=== PATIENT | male | born 1945 | race Caucasian/White ===

== ENCOUNTER 2023-09-08 14:02 | Outpatient (AMB) | payer MEDICARE, SELFPAY ==
--- NOTE | 2023-09-08 14:07 | AM.OFFWIN_ITS ---
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 Intake Note: pt is here today for nose and cough started 3 days ago Allergies No Known Allergies Allergy (Verified 09/08/23 14:13) Do you need a note to return to daycare/school/sports/work: No HPI HPI Comments History of Present Illness Details He presents to office with cold symptoms He admits to fatigue, congestion, dry cough Negative covid test at home and unsure if positive He said has been ongoing for a few days No fever or chills + slight body aches Wanted to be swabbed Not taking anything for symptoms No CP or SOB Review of Systems Const Reports body aches, Denies chills, Reports fatigue, Denies fever(s) and Denies headache(s) Eyes Denies blurry vision ENT Denies dizziness, Denies otalgia (wears hearing aids), Denies headache(s), Reports nasal congestion and Denies sore throat Card Denies chest pain, Denies syncope, Denies rapid heart rate and Denies dyspnea Resp Denies chest congestion, Reports cough and Denies dyspnea GI Denies abdominal pain and Denies vomiting Musc Denies back pain and Reports myalgias Neuro Denies dizziness, Denies syncope, Denies headache(s) and Denies focal weakness Endo Reports fatigue Physical Exam Vital Signs: Last Vital Signs Temp 98.0 F 09/08/23 14:09 Pulse 86 09/08/23 14:09 BP 122/60 09/08/23 14:09 Pulse Ox 99 09/08/23 14:09 Oxygen Delivery Method Room Air 09/08/23 14:09 BMI result Body Mass Index 23.5 General: Non-toxic, NAD. Speaking full sentences. Skin: Warm dry throughout Eye: EOMI HENT: Airway patent. Uvula midline. No pharyngeal erythema or edema. 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 Bilateral canals clear. TM non-erythematous, non-bulging. No TM perforation or hemotympanum noted. Respiratory: CTA bilaterally. No wheezes, rales or rhonchi Cardiac: RRR. No murmur MSK: Full ROM extremities. Neurology: A/O. No aphasia or facial droop. Gait without abnormality Psych: Good mood and affect Assessment & Plan Assessment & Plan (1) Upper respiratory infection: Code(s): J06.9 - Acute upper respiratory infection, unspecified Qualifiers: URI type: unspecified viral URI Qualified Code(s): J06.9 - Acute upper respiratory infection, unspecified Plan: Patient seen and evaluated. Non-toxic appearing Lungs CTA COVID test due to unsure if + at home; resulted as + 5 day quarantine at home. Pt stable so will hold paxlovid Discussed ER protocol for CP, SOB, dizziness etc and he understands. 5 day quarantine at home and 5 day mask wearing in public Call with concerns Patient gave verbal understanding and had no additional questions or concerns at time of discharge All questions answered (2) COVID: Code(s): U07.1 - COVID-19 Plan: see above Orders: Orders BinaxNOW Covid-19 Ag Today J06.9 - Acute upper respiratory infection, unspecified Coding Level of Care Code New Pt Level 3 (33641) Diagnoses Viral upper respiratory tract infection J06.9 URI type: unspecified viral URI COVID U07.1
[2023-09-08 14:09] VITALS: BP 122/60; PULSE 86; TEMP 36.7; O2SAT 99; BMI 23.5
== END 2023-09-08 15:36 | disposition home or self-care (01) ==
PROVIDERS: Visit Provider Physician Assistant
DX: J06.9 Acute upper respiratory infection, unspecified (principal); U07.1 COVID-19
CPT/HCPCS: 99203

== ENCOUNTER 2023-09-08 14:39 | Outpatient (REF) | payer MEDICARE, SELFPAY ==
[2023-09-08 14:53] LABS: Binax Internal Control QC Valid; Binax Now Covid-19 Ag Positive (Negative); Binax Performed by: PAULP
== END 2023-09-08 14:40 | disposition home or self-care (01) ==
LOC: HO.HMGCLDS 14:39
PROVIDERS: Visit Provider Physician Assistant
DX: J06.9 Acute upper respiratory infection, unspecified (principal); Z20.822 Contact with and (suspected) exposure to COVID-19
CPT/HCPCS: 87811

== ENCOUNTER 2023-09-20 10:20 | Outpatient (AMB) | payer MEDICARE, SELFPAY ==
[2023-09-20 11:37] VITALS: BP 140/80; PULSE 73; TEMP 36.2; O2SAT 98; BMI 24.7
--- NOTE | 2023-09-20 11:37 | MHC.OFFWIV ---
Intake Vital Signs 09/20/23 11:37 Height 5 ft 9 in Weight 167 lb BMI 24.7 BP 140/80 H Blood Pressure Location Lt brachial Position Sitting Pulse 73 Pulse Source Pulse Oximeter Temp 97.1 F Temp Source Temporal Artery Scan Pulse Oximetry (%) 98 Oxygen Delivery Method Room Air Intake Visit Reasons: EST/sinus pressure(lobby masked) Intake Note: pt is here today for sinus pressure started 2 weeks ago Patient Tobacco Use Status: Never used Tobacco Allergies No Known Allergies Allergy (Verified 09/20/23 11:41) Do you need a note to return to daycare/school/sports/work: No HPI HPI Comments History of Present Illness Details Patient presents with sinus complaint He was seen 09/08 and + covid At that time he had barely any symptoms He states sinus congestion continuing Hx of sinusitis due to deviared septum + post nasal drip and cough Intermittent phlegm No fever or chills + good energy and working out again No CP or SOB Using cough drops without relief + sinus pressure without ST or ear pain PFSH Social History Patient Tobacco Use Status: Never used Tobacco Review of Systems Const Denies body aches, Denies chills, Denies fatigue and Denies fever(s) Eyes Denies blurry vision ENT Denies otalgia, Reports nasal congestion, Reports nasal discharge, Reports sinus pressure and Denies sore throat Card Denies chest pain and Denies dyspnea Resp Denies chest congestion, Reports cough and Denies dyspnea GI Denies abdominal pain Endo Denies fatigue Physical Exam Vital Signs: Last Vital Signs Temp 97.1 F 09/20/23 11:37 Pulse 73 09/20/23 11:37 BP 140/80 H 09/20/23 11:37 Pulse Ox 98 09/20/23 11:37 Oxygen Delivery Method Room Air 09/20/23 11:37 BMI result Body Mass Index 24.7 General: Non-toxic, NAD. Speaking full sentences. Skin: Warm dry throughout Eye: EOMI, PERRL HENT: Airway patent. Uvula midline. No pharyngeal erythema or edema. No MACHINE FELLER. + sinus tenderness to palpation maxillary bilaterally Bilateral canals clear. TM non-erythematous, non-bulging. No TM perforation or hemotympanum noted. Respiratory: CTA bilaterally. No wheezes, rales or rhonchi Cardiac: RRR. No murmur MSK: Full ROM extremities. Neurology: A/O. No aphasia or facial droop. Gait without abnormality Psych: Good mood and affect Assessment & Plan Assessment & Plan (1) Sinusitis: Code(s): J32.9 - Chronic sinusitis, unspecified Qualifiers: Sinusitis location: maxillary Chronicity: acute Recurrence: non-recurrent Qualified Code(s): J01.00 - Acute maxillary sinusitis, unspecified Plan: Patient seen and evaluated. He was + for covid 11 days ago Symptoms appear to have turned into bacterial inusitis Discussed antibiotic to pharmacy to take with food Tessalon for cough F/U with PCP Patient gave verbal understanding and had no additional questions or concerns at time of discharge All questions answered Medications: New benzonatate 100 mg PO BID-TID PRN 14 caps 0RF cough amoxicillin-pot clavulanate 875-125 mg 1 tab PO BID 14 tabs 0RF Coding Level of Care Code Est Pt Level 3 (90326) Diagnoses Acute non-recurrent maxillary sinusitis J01.00 Sinusitis location: maxillary Chronicity: acute Recurrence: non-recurrent
== END 2023-09-20 12:40 | disposition home or self-care (01) ==
PROVIDERS: Visit Provider Physician Assistant
DX: J01.00 Acute maxillary sinusitis, unspecified (principal)
CPT/HCPCS: 99213

== ENCOUNTER 2023-12-03 09:46 | Emergency (ER) | payer MEDICARE, SELFPAY ==
--- NOTE | ~2023-12-03 | CT_ITS ---
EXAMINATION: CT HEAD WITHOUT CONTRAST CT CERVICAL SPINE WITHOUT CONTRAST CLINICAL INFORMATION: Fall. Injury. Pain. COMPARISON: None available. TECHNIQUE: Contiguous axial imaging was performed from the skull base to vertex without intravenous administration of contrast. Contiguous axial imaging was performed from the upper chest through the skull base without intravenous administration of contrast. Coronal and sagittal reformats were obtained at the acquisition workstation. This CT examination was performed using dose optimization techniques as appropriate, variously including the following: *Automated exposure control. *Adjustment of mA and/or kV according to patient size (this includes techniques or standardized protocols for targeted exams where dose is matched to indication/reason for exam; i.e. extremities or head). *Use of iterative reconstruction technique. DLP: 951 mGy-cm FINDINGS: Head: There is no evidence of acute intracranial hemorrhage or edematous territorial infarction. Hernandez-white matter differentiation is preserved. Scattered and partially confluent hypoattenuation in the periventricular and deep white matter are consistent with moderate microangiopathy. Proportional prominence of the ventricles and sulcal spaces without evidence of obstructive hydrocephalus. No abnormal mass effect or midline shift. No extra-axial fluid collections. Bilateral lens extractions. Calcific atherosclerotic disease of the intracranial internal carotid arteries. No hyperdense vessel sign. No acute soft tissue or osseous abnormalities. Mild mucosal thickening of the paranasal sinuses. The mastoid air cells and middle ear cavities are clear. Cervical Spine: The atlantooccipital and atlantoaxial articulations remain well aligned. Reversal the normal cervical lordosis centered on C5. Moderate degenerative anterolisthesis of C4 on C5. Otherwise, there is anatomic alignment of the vertebral bodies and posterior elements. No evidence of acute fracture or subluxation. Ankylosis of C4-C5. The vertebral body heights are maintained. Advanced degenerative disc disease from C4-T2. Facet and uncovertebral joint arthropathy leads to osseous encroachment on the neural foramina from C2-C7. Moderate bridging anterior osteophytosis from C4-T2. There is no prevertebral soft tissue swelling. The thyroid gland and remaining cervical soft tissues are within normal limits. The lung apices demonstrate no abnormalities. CT/CT cervical spine wo IV con IMPRESSION: 1. No evidence of acute intracranial hemorrhage or edematous territorial infarction. 2. No evidence of acute fracture or traumatic subluxation of the cervical spine. 3. 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 4. Advanced multilevel degenerative spondyloarthropathy of the cervical spine.
--- NOTE | ~2023-12-03 | XR_ITS ---
EXAMINATION: XR ANKLE, LEFT CLINICAL INFORMATION: Twisted ankle. Pain COMPARISON: None available. TECHNIQUE: AP, lateral, and mortise views of the left ankle. FINDINGS: There is an oblique displaced lateral malleolar fracture with moderate soft tissue swelling. The ankle mortise and subtalar joints are normal. There is a small retrocalcaneal and calcaneal heel enthesophyte. XR/XR ankle LT 2V IMPRESSION: 1. Oblique displaced lateral malleolar fracture with moderate soft tissue swelling. 2. Small retrocalcaneal and calcaneal heel enthesophytes.
[2023-12-03 09:51] VITALS: BP 131/72; PULSE 83; RESP 18; TEMP 36.6; O2SAT 98; BMI 24.4
--- NOTE | 2023-12-03 09:59 | ED.GENADULT ---
HPI - General Adult General Chief complaint: Extremity Injury, Lower Stated complaint: Fall/L leg inj Time Seen by Provider: 12/03/23 09:59 Source: patient Mode of arrival: ambulatory Limitations: no limitations History of Present Illness HPI narrative: Patient is an 78 year old assigned male at with no reported medical history presenting to the emergency department today with left ankle pain. Patient states that last night he slipped on his steps, scraping the anterior portion of his left ankle and twisting the left ankle. Patient denies any head strike, loss of consciousness, dizziness, lightheadedness, abdominal pain, nausea, vomiting, fever, chills, blurry vision, double vision, loss of vision, chest pain, difficulty breathing, shortness of breath, back pain, night sweats, pain with urination, increased urinary frequency, increased urinary urgency, blood in his urine or stool, syncope or a near syncopal episode, bowel incontinence, bladder incontinence, bowel retention, bladder retention, or any other complaints at this time. Onset (ago): day(s) (1) Location: left and lower extremity Severity: mild Severity scale (1-10): 3 Quality: aching and dull Pain Consistency: constant Relieving factors: none Exacerbating factors: none Associated symptoms: denies other symptoms Treatments prior to arrival: none Related Data Previous Rx's Medication Instructions Recorded amoxicillin 875 mg-potassium 1 tab PO BID #14 tabs 09/20/23 clavulanate 125 mg tablet benzonatate 100 mg capsule 100 mg PO BID-TID PRN cough #14 09/20/23 caps amoxicillin 875 mg-potassium 1 tab PO BID 10 days #20 tabs 12/03/23 clavulanate 125 mg tablet Allergies Allergy/AdvReac Type Severity Reaction Status Date / Time No Known Allergies Allergy Verified 12/03/23 09:51 Review of Systems Constitutional: Constitutional: Reports no additional constitutional complaints, Denies chills, Denies fever(s) and Denies night sweats Eyes: Eyes: Reports no additional eye complaints, Denies blurry vision, Denies change in vision, Denies diplopia, Denies eye discharge, Denies loss of vision and Denies eye pain ENT: Denies dizziness Cardiovascular: Cardiovascular: Reports no additional cardiovascular complaints, Denies chest pain, Denies lightheadedness, Denies Loss of Consciousness and Denies dyspnea Respiratory: Respiratory: Reports no additional respiratory complaints and Denies dyspnea Gastrointestinal: Gastrointestinal: Reports no additional gastrointestinal complaints, Denies abdominal pain, Denies melena, Denies hematochezia, Denies change in bowel habits and Denies change in stool character Genitourinary: Genitourinary: Reports no additional male genitourinary complaints, Denies hematuria, Denies oliguria, Denies difficulty urinating, Denies dysuria, Denies urinary frequency, Denies urinary hesitancy, Denies urinary incontinence and Denies urinary urgency Musculoskeletal: Musculoskeletal: Reports no additional musculoskeletal complaints, Denies numbness and Denies tingling Comments: left ankle pain Neurologic: Denies dizziness, Denies loss of vision, Denies numbness and Denies tingling Psychiatric: Psychiatric: Reports no additional psychiatric complaints Endocrine: Endocrine: Reports no additional endocrine complaints Hematologic/Lymphatic: Hematologic/Lymphatic: Reports no additional hematologic/lymphatic complaints Allergic/Immunologic: Allergic/Immunologic: Reports no additional allergic/immunologic complaints PMFSH Past Medical History Attestation statement: The following information was validated with the patient. Source: old records reviewed and nursing notes reviewed Social History Social History Patient Tobacco Use Status: Never used Tobacco Smoked in Last 30 Days: No Use of substances other than those prescribed or required for medical reasons: No Advance Directives: No Advance Directives Information Provided: Yes Physical Exam ED Vital Signs: Vital Signs - 24 hr 12/03/23 09:51 Temperature 98 F Pulse Rate 83 Respiratory Rate 18 Blood Pressure 131/72 Pulse Oximetry 98 Oxygen Delivery Method Room Air BMI result Body Mass Index 24.4 Const General: cooperative, no acute distress, alert and awake Nutritional Appearance: well nourished Orientation/consciousness: patient oriented x3 Limitations: no limitations HENMT Head: Yes normal to inspection and Yes atraumatic Ears: hearing grossly normal bilaterally and external ears normal General nose exam: Normal external nose present, no nasal discharge noted and no epistaxis Face and sinus: Yes normal facial exam, No abrasion and No laceration Mouth: Normal oral and palatal mucosa present, no drooling and no muffled voice Eyes General: appearance normal, both eyes and all related structures Periorbital: periorbital findings normal Eyelids: Yes eyelids normal Conjunctivae: conjunctivae normal Pupils: Equal, round and reactive pupils present EOM: EOMs intact bilaterally Neck Neck: Yes normal visual inspection, Yes full ROM and Yes no lymphadenopathy Chest Chest palpation & inspection: normal inspection of the chest Resp Effort & Inspection: normal respiratory effort and able to speak in complete sentences GI Inspection: Yes normal to inspection Neuro General: patient oriented x3 and moves all extremities Cranial nerves: Yes Equal, round and reactive pupils present Cognition (Neuro): normal cognition Motor exam (neuro): 5/5 motor strength present throughout Sensory Exam: Normal double simultaneous stimulation for sensation Coordination: [id number] test normal Extrem Other: General: Yes full ROM and Yes capillary refill normal Psych Appearance: grossly normal Mental Status: mental status grossly normal Affect: normal affect Attitude: cooperative Thought process: Normal thought process present Thought content: Normal thought content present Insight: Good insight present (Psych) Medications Administered Discontinued Medications Generic Name Dose Route Start Last Admin Trade Name Freq PRN Reason Stop Dose Admin Amoxicillin/Clavulanate Potassium 875 mg 12/03/23 10:25 12/03/23 10:55 Amoxicillin/Potassium Clav 875 Mg Tablet PO 12/03/23 10:26 875 mg ONCE ONE Administration Bacitracin 1 appl 12/03/23 10:25 12/03/23 10:55 Bacitracin Oint 0.9 Gm Packet TOPICAL 12/03/23 10:26 1 appl ONCE ONE Administration Protocol Diphtheria/Tetanus/Acell Pertussis 0.5 ml 12/03/23 11:43 12/03/23 12:09 Diphth,Pertus(Acell),Tet Adult 0.5 Ml Syringe IM 12/03/23 11:44 0.5 ml .ONCE ONE Administration Procedures Orthopedic Splinting/Casting Injury #1: Side: left Lower Extremity Injury Location: ankle Lower Extremity Immobilizer: posterior splint and stirrup splint Other Orthopedic Equipment: crutches Medical Decision Making Medical Decision Making MDM Narrative: Patient is an 78 year old assigned male at with no reported medical history presenting to the emergency department today with left ankle pain. Patient's physical exam was as noted in the physical exam portion of this note. Patient's head and c-spine CTs showed no acute process. Patient's left ankle x-ray showed an oblique displaced lateral malleolar fracture with moderate soft tissue swelling. I spoke to the orthopedic team who recommended splinting, covering with ABX, and having the patient follow up out patient. Patient's ankle abrasion had bacitracin applied and was wrapped with a non-adherent dressing, without incident. Patient's PMS was intact prior to and after abrasion dressing. Patient's left ankle was splinted with a posterior + stirrup splint, without incident. Patient's PMS was intact prior to and after splint placement. Patient given crutches with crutch instructions. I explained my physical exam findings as well as all test results to the patient. I answered all questions asked by the patient. I explained to the patient that if he were to begin to having any numbness or tingling in his left lower extremity that he could loosen the outside LIDIA wraps but if he were loosening it to the point where the underlying material was exposed, he should come back to the ER immediately for a new splint. I stressed the importance of the patient taking his medication as prescribed. I stressed the importance of the patient following up with his primary care provider and an orthopedic provider. I stressed the importance of the patient returning to the emergency department immediately if his symptoms were to worsen or if he were to develop any dizziness, shortness of breath, difficulty breathing, chest pain, blurry vision, loss of vision, nausea, vomiting, abdominal pain, fever, chills, back pain, or any other complaints. Patient verbalized agreement and understanding with this treatment plan and discharge. 12/03/2023 1238 ---> Patient was walking with crutches when he almost fell backwards. Patient needs physical therapy evaluation given elderly status and unsteady on his feet. Orders placed. Physician observation begins 1238. Differential Diagnosis Differential Diagnoses: The differential diagnosis associated with the presentation includes Left ankle fracture Fall Ankle sprain Ankle strain Admission/Observation Consideration of admission/observation: Escalation of care including admission/observation considered Patient would have been admitted to the hospital had his work up had any findings where hospital admission was appropriate and his clinical presentation warranted hospital admission. Consult Healthcare Provider Management of the patient was discussed with: Dry Cell Assembly Supervisor (spoke with the orthopedic team as noted in the MDM rationale portion of this note) Independent Interpretation I performed an independent interpretation of an: Plain X-Ray and CT Scan Interpretation: My interpretation is in agreement with the radiologist's impression of these imaging studies. EXAMINATION: XR ANKLE, LEFT CLINICAL INFORMATION: Twisted ankle. Pain COMPARISON: None available. TECHNIQUE: AP, lateral, and mortise views of the left ankle. FINDINGS: There is an oblique displaced lateral malleolar fracture with moderate soft tissue swelling. The ankle mortise and subtalar joints are normal. There is a small retrocalcaneal and calcaneal heel enthesophyte. XR/XR ankle LT 2V IMPRESSION: 1. Oblique displaced lateral malleolar fracture with moderate soft tissue swelling. 2. Small retrocalcaneal and calcaneal heel enthesophytes. Dictated By: Nemesio Lutz MD Signed By: Electronically signed by Nemesio Lutz MD 12/03/23 1009 EXAMINATION: CT HEAD WITHOUT CONTRAST CT CERVICAL SPINE WITHOUT CONTRAST CLINICAL INFORMATION: Fall. Injury. Pain. COMPARISON: None available. TECHNIQUE: Contiguous axial imaging was performed from the skull base to vertex without intravenous administration of contrast. Contiguous axial imaging was performed from the upper chest through the skull base without intravenous administration of contrast. Coronal and sagittal reformats were obtained at the acquisition workstation. This CT examination was performed using dose optimization techniques as appropriate, variously including the following: *Automated exposure control. *Adjustment of mA and/or kV according to patient size (this includes techniques or standardized protocols for targeted exams where dose is matched to indication/reason for exam; i.e. extremities or head). *Use of iterative reconstruction technique. DLP: 951 mGy-cm FINDINGS: Head: There is no evidence of acute intracranial hemorrhage or edematous territorial infarction. Hernandez-white matter differentiation is preserved. Scattered and partially confluent hypoattenuation in the periventricular and deep white matter are consistent with moderate microangiopathy. Proportional prominence of the ventricles and sulcal spaces without evidence of obstructive hydrocephalus. No abnormal mass effect or midline shift. No extra-axial fluid collections. Bilateral lens extractions. Calcific atherosclerotic disease of the intracranial internal carotid arteries. No hyperdense vessel sign. No acute soft tissue or osseous abnormalities. Mild mucosal thickening of the paranasal sinuses. The mastoid air cells and middle ear cavities are clear. Cervical Spine: The atlantooccipital and atlantoaxial articulations remain well aligned. Reversal the normal cervical lordosis centered on C5. Moderate degenerative anterolisthesis of C4 on C5. Otherwise, there is anatomic alignment of the vertebral bodies and posterior elements. No evidence of acute fracture or subluxation. Ankylosis of C4-C5. The vertebral body heights are maintained. Advanced degenerative disc disease from C4-T2. Facet and uncovertebral joint arthropathy leads to osseous encroachment on the neural foramina from C2-C7. Moderate bridging anterior osteophytosis from C4-T2. There is no prevertebral soft tissue swelling. The thyroid gland and remaining cervical soft tissues are within normal limits. The lung apices demonstrate no abnormalities. CT/CT cervical spine wo IV con IMPRESSION: 1. No evidence of acute intracranial hemorrhage or edematous territorial infarction. 2. No evidence of acute fracture or traumatic subluxation of the cervical spine. 3. 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 4. Advanced multilevel degenerative spondyloarthropathy of the cervical spine. Dictated By: Jae Narayan DO Signed By: Electronically signed by Jae Narayan DO 12/03/23 2548 Radiology Impression Discussion of test interpretation with radiology: I have reviewed the radiologist's reading. Prescription Management I considered prescription management with: Antibiotic (patient prescribed an antibiotic to cover for possible open fracture) Critical Care Time Critical Care Time Critical Care Time: Yes Total Critical Care Time: 74 Attestation: I spent 74 minutes of Critical Care Time with this patient. This does not include time spent on separately reported billable procedures. Discharge Plan Discharge Clinical Impression: Ankle fracture Patient Disposition: Still a Patient Instructions: Ankle Fracture (DC), Crutch Instructions (ED) Additional Instructions: Follow up with your primary care provider and an orthopedic provider. Take your antibiotic as prescribed. Do NOT bear weight on your left lower leg. Whenever stationary, elevate your left lower extremity at least 3 pillow height. Return to the emergency department immediately if your symptoms worsen or if you develop any dizziness, shortness of breath, difficulty breathing, chest pain, blurry vision, loss of vision, nausea, vomiting, abdominal pain, fever, chills, back pain, or any other complaints. Prescriptions: New amoxicillin-pot clavulanate 875-125 mg tablet 1 tab PO BID 10 Days Qty: 20 0RF No Action benzonatate 100 mg capsule 100 mg PO BID-TID PRN (Reason: cough) Qty: 14 0RF amoxicillin-pot clavulanate 875-125 mg tablet 1 tab PO BID Qty: 14 0RF Referrals: [facility] [place] [facility] [Provider Group] (Call to establish and follow up with a primary care provider. If you already have a primary care provider, please follow up with them.) [facility] [place] [facility] [Provider [facility]] (Call to establish and follow up with a primary care provider. If you already have a primary care provider, please follow up with them.) [facility] [place] [facility] [Provider Group] (Call to establish and follow up with a primary care provider. If you already have a primary care provider, please follow up with them.) [facility] [place] [facility] [Provider Group] (Call to establish and follow up with an orthopedic provider. ) Print Language: Yoruba
[2023-12-03] MEDS: Bacitracin Oint 0.9 GM PACKET 1 APPL TOPICAL (10:55)
[2023-12-03] MEDS: Amoxicillin/Potassium Clav 875 MG TABLET PO (10:55)
--- NOTE | 2023-12-03 11:14 | PC.NURSE ---
per pa l ankle/foot area wrapped w gauze/nonadher. pads/bacitracin. elevated. +CMS.
[2023-12-03] MEDS: Diphth,Pertus(ACell),Tet Adult 0.5 ML SYRINGE IM (12:09)
[2023-12-03 12:43] VITALS: PULSE 72; RESP 18; TEMP 36.7; O2SAT 98
[2023-12-03 12:44] VITALS: BP 146/56
--- NOTE | 2023-12-03 12:49 | MHC.EDTECH ---
During crutch training pt was unsteady on feet, needed assistance from transitioning to sitting to standing (could not do it on own), pt would rock bath and forth when crutching, pt needs 1 assist when using crutches. pt also mentioned to this tech that there are no elevators in his apartment building and would have to utilize stairs independently. This tech expressed concerns to RN.
--- NOTE | 2023-12-03 13:09 | MHC.CM.PN ---
Male 78 DX L Ankle FX. CM consult received r/t unsteady gait with use of crutches. A PT eval is pending.
--- NOTE | 2023-12-03 13:24 | PC.NURSE ---
pt wants to go home and does not want to wait for PT/CM, states he can safely manage, pt was able to use crutches and ambulate safely around the overflow unit with this RN and Saira VARGAS observing, pt now calling his to come to the ED to discuss plan to go home
[2023-12-03 14:03] VITALS: BP 135/79; PULSE 76; RESP 18; TEMP 37.1; O2SAT 97
== END 2023-12-03 14:05 | disposition still patient (30) ==
PROVIDERS: Emergency Provider Emergency Medicine
DX: S82.62XA Displaced fracture of lateral malleolus of left fibula, initial encounter for closed fracture (principal); S90.512A Abrasion, left ankle, initial encounter; X50.1XXA Overexertion from prolonged static or awkward postures, initial encounter; Y93.9 Activity, unspecified; Y92.9 Unspecified place or not applicable; Y99.9 Unspecified external cause status
CPT/HCPCS: 29515; 70450; 72125; 73600; 90471; 90715; 99284

== ENCOUNTER 2023-12-07 15:09 | Outpatient (AMB) | payer MEDICARE, SELFPAY ==
--- NOTE | 2023-12-07 15:29 | MHC.OFFVIS ---
Intake Vital Signs 12/07/23 15:34 Height 5 ft 9 in Weight 169 lb BMI 25.0 Intake Visit Reasons: FC - Left ankle Fx, DOI 12/03/23 Intake Note: Mckinley is a 78 year old male who presents today for a evaluation of his left ankle fx, DOI 12/02/23. Patient states that he slipped on top of his steps, scraping his left ankle and twisting it. Currently not having any pain, however he is having discomfort with the splint. Allergies No Known Allergies Allergy (Verified 12/07/23 15:33) HPI FC - Left ankle Fx, DOI 12/03/23 HPI Details 78-year-old male who presents in the office today, as a new patient, for an evaluation of left ankle pain. Patent presented to the ED on 12/03/2023 status post a slip and fall on his steps. X-rays were obtained. He was prescribed Amoxicillin-pot clavulanate 875-125 mg PO BID for 10 days, due an open wound which occurred during the fall. Patient's left ankle was splinted with a posterior stirrup splint wrapped in an LIDIA wrap on the outside and he was given crutches. While in the office today the patient reports he slipped down from the top of the stairs at home and scrapped his ankle along with twisting it. He states he is not having any pain but is having discomfort he feels is from the splint. Patient presented in a wet splint and ambulating on the left lower extremity. Patient has a trip to the [facility] planned for 01/15/2024. They will be flying to [place] and then to the [facility]. [facility] Social History (Updated 12/07/23 @ 15:34 by Cory Licona) Alcohol intake: current Patient Tobacco Use Status: Never used Tobacco Current occupational status: retired Review of Systems Const All systems reviewed & are unremarkable except as noted in HPI and below Physical Exam Vital Signs: BMI result Body Mass Index 25.0 Const General: cooperative, healthy appearing and no acute distress Orientation/consciousness: patient oriented x3 Resp Effort & Inspection: normal respiratory effort and able to speak in complete sentences Cardio Rate: regular rate Peripheral pulses: Peripheral pulses 2+ throughout GI Palpation (GI): Soft to palpation Skin General skin exam: no rashes or lesions noted Lesions: no lesions Rashes: no rashes Neuro General: patient oriented x3 Extrem Other: Left ankle: Superficial abrasions over the anterior aspect of the left ankle. No surrounding erythema or drainage. No signs of infection. Able to dorsiflex and plantarflex with mild pain. Tenderness to palpation over the lateral malleolus. Sensation intact. NVI. Office Procedures Fracture Care Fracture Billing Code: Fracture Billing Code Assessment & Plan Assessment & Plan (1) Fracture of left ankle, lateral malleolus: Code(s): S82.62XA - Displaced fracture of lateral malleolus of left fibula, initial encounter for closed fracture Plan Mr. Damico is an 78-year-old male who presents in the office today, as a new patient, for an evaluation of left ankle pain. Patent presented to the ED on 12/03/2023 status post a slip and fall on his steps. X-rays were obtained. He was prescribed Amoxicillin-pot clavulanate 875-125 mg PO BID for 10 days, due an open wound which occurred during the fall. Patient's left ankle was splinted with a posterior stirrup splint wrapped in an LIDIA wrap on the outside and he was given crutches. While in the office today the patient reports he slipped down from the top of the stairs at home and scrapped his ankle along with twisting it. He states he is not having any pain but is having discomfort he feels is from the splint. Patient presented in a wet splint and ambulating on the left lower extremity. Patient has a trip to the [facility] planned for 01/15/2024. They will be flying to [place] and then to the [facility]. Will be transitioned in to a tall walking boot, off the shelf, in the office today. He may weight bear as tolerated with the assistance of crutches. You are able to get out of boot to shower but you need to use extra caution while in the shower. The boot should only be removed for showering, bandage change and when elevating with ice. Wound was dressed with Xeroform and nonstick gauze wrap with a stockinette. I educated the patient he needs to perform daily dressing changes with supplies given to the patient today. A prescription for a shower chair was supplied to the patient in the office. Educated the patient to take a full adult aspirin before getting on the plane as there is an increased risk of DVT. Recommend you getting up to move around on the plane by making a few laps. Recommend for the patient to no do any long periods of walking. He should avoid going in any water. A card was supplied to the patient while in the office today. Follow up will be in 4 weeks, or sooner if needed. X-rays of the left ankle, obtained on 12/03/2023, revealed: 1. Oblique displaced lateral malleolar fracture with moderate soft tissue swelling. 2. Small retrocalcaneal and calcaneal heel enthesophytes. Medications: New [shower Chair] As directed 1 ea 0RF Left ankle fracture S82.62XA - Displaced fracture of lateral malleolus of left fibula, initial encounter for closed fracture Patient Instructions: Scribed by Leta Quiros director of graduate medical education, for Monse Harrison PA-C on 12/07/2023 at 3:39 pm, EST. Coding Level of Care Code New Pt Level 4 (19621) Diagnoses Fracture of left ankle, lateral malleolus S82.62XA CPT Codes Fracture Care - Fracture Billing Code: Fracture Billing Code ([id number])
[2023-12-07 15:34] VITALS: BMI 25.0
== END 2023-12-07 16:28 | disposition home or self-care (01) ==
PROVIDERS: Visit Provider Physician Assistant
DX: S82.62XA Displaced fracture of lateral malleolus of left fibula, initial encounter for closed fracture (principal)
CPT/HCPCS: 99203

== ENCOUNTER → 2023-12-07 15:09 | Outpatient (BNVA) | payer MEDICARE, SELFPAY | PROVIDERS: Visit Provider Physician Assistant | DX: S82.62XA Displaced fracture of lateral malleolus of left fibula, initial encounter for closed fracture (principal) | CPT/HCPCS: 99202 ==

== ENCOUNTER 2024-01-04 09:13 | Outpatient (REF) | payer MEDICARE, SELFPAY ==
--- NOTE | ~2024-01-04 | XR_ITS ---
EXAMINATION: XR ANKLE, LEFT CLINICAL INFORMATION: Pain in unspecified ankle and joints of unspecified foot COMPARISON: Left ankle 12/03/2023 TECHNIQUE: AP, lateral, and mortise views of the left ankle. FINDINGS: Again noted is the oblique displaced lateral malleolar fracture with mild soft tissue swelling. Interval decrease in soft tissue swelling. The fracture lines are slightly blurred consistent with healing. No significant change in alignment or position of the fracture fragments. The ankle mortise and subtalar joints are normal. Small posterior plantar calcaneal spurs and Achilles enthesophyte are noted. XR/XR ankle LT min 3V IMPRESSION: Healing oblique displaced lateral malleolar fracture.
== END 2024-01-04 09:14 | disposition home or self-care (01) ==
LOC: HO.HOSX 09:13
PROVIDERS: Visit Provider Physician Assistant
DX: M25.572 Pain in left ankle and joints of left foot (principal); S82.65XD Nondisplaced fracture of lateral malleolus of left fibula, subsequent encounter for closed fracture with routine healing; X58.XXXD Exposure to other specified factors, subsequent encounter
CPT/HCPCS: 73610; 99212

== ENCOUNTER 2024-01-04 13:49 | Outpatient (AMB) | payer MEDICARE, SELFPAY ==
--- NOTE | 2024-01-04 14:10 | MHC.OFFVIS ---
Vital Signs 01/04/24 14:11 Height 5 ft 9 in Weight 169 lb BMI 25.0 Intake Visit Reasons: ov- Left ankle Fx, DOI 12/03/23 Intake Note: Mckinley is a 78 year old male who presents today for a follow up of his left ankle fx, DOI 12/02/23. Patient states he is doing well. No complaints of pain or discomfort. Denies numbness and tingling. Allergies No Known Allergies Allergy (Verified 12/07/23 15:33) HPI HPI ov- Left ankle Fx, DOI 12/03/23: Details: 78-year-old male who presents in the office today for a follow up of a left ankle lateral malleolus fracture, which occurred on 12/03/2023 status post a slip and fall on his steps. I last saw the patient in the office on 12/07/2023 when she was educated about DVTs on her plane trip. He was transitioned out of the tall walking boot and instructed to weight bear as tolerated with crutches. educated the patient he needs to perform daily dressing changes with supplies given to the patient today. A prescription for a shower chair was supplied to the patient in the office. While in the office today the patient reports he is doing well. He has no complaints of pain or discomfort. He denies numbness and tingling. [facility] Social History Alcohol intake: current Patient Tobacco Use Status: Never used Tobacco Current occupational status: retired Review of Systems Const All systems reviewed & are unremarkable except as noted in HPI and below Physical Exam Vital Signs: BMI result Body Mass Index 25.0 Const General: cooperative, healthy appearing and no acute distress Resp Effort & Inspection: normal respiratory effort and able to speak in complete sentences Cardio Rate: regular rate Peripheral pulses: Peripheral pulses 2+ throughout GI Palpation (GI): Soft to palpation Skin Lesions: no lesions Rashes: no rashes Extrem Other: Left ankle: Mild to moderate circumferential edema. No tenderness to palpation medial or lateral malleolus. No tenderness to palpation over the fracture site. Near full dorsiflexion, plantarflexion, inversion, eversion without pain. Sensation intact. Pedal pulse intact. Assessment & Plan Assessment & Plan (1) Fracture of left ankle, lateral malleolus: Code(s): S82.62XA - Displaced fracture of lateral malleolus of left fibula, initial encounter for closed fracture Category: Medical Qualifiers: Encounter type: subsequent encounter Fracture alignment: nondisplaced Fracture healing: with routine healing Fracture type: closed Qualified Code(s): S82.65XD - Nondisplaced fracture of lateral malleolus of left fibula, subsequent encounter for closed fracture with routine healing Plan Mr. Damico is an 78-year-old male who presents in the office today for a follow up of a left ankle lateral malleolus fracture, which occurred on 12/03/2023 status post a slip and fall on his steps. I last saw the patient in the office on 12/07/2023 when she was educated about DVTs on her plane trip. He was transitioned out of the tall walking boot and instructed to weight bear as tolerated with crutches. educated the patient he needs to perform daily dressing changes with supplies given to the patient today. A prescription for a shower chair was supplied to the patient in the office. While in the office today the patient reports he is doing well. He has no complaints of pain or discomfort. He denies numbness and tingling. Patient reports the tall walking boot is very cumbersome and difficult for him to ambulate. We have agreed to try a short walking boot, off the shelf. He may bear weight as tolerated with the understanding that if he has any increase in pain, he should immediately return to the tall walking boot. He demonstrates understanding. He is accompanied in the office today by his who is asking if he is able to vacation in 01/2024. I do not feel that this is advisable. I feel the patient may still have difficulty surrounding the ankle injury. PT was deferred at this time due to the patient having very good ROM. Home exercises were demonstrated in the office today, which he should perform at home. He demonstrates understanding. Follow up will be in 4 weeks with repeat x=rays, or sooner if needed. X-rays of the left ankle which were obtained while in the office today and were reviewed by me, Monse Harrison PA-C, revealed routine healing of a left lateral malleolus fracture. Orders: Orders XR ankle LT min 3V Today M25.579 - Pain in unspecified ankle and joints of unspecified foot Patient Instructions: Scribed by herlinda Daily scribe, for Monse Hunter ALARCON on 01/04/2024 at 1:56 pm, EST. Coding Level of Care Code Global (28477) Diagnoses Closed nondisplaced fracture of lateral malleolus of left fibula with routine healing, subsequent encounter S82.65XD Encounter type: subsequent encounter Fracture alignment: nondisplaced Fracture healing: with routine healing Fracture type: closed
[2024-01-04 14:11] VITALS: BMI 25.0
== END 2024-01-04 14:44 | disposition home or self-care (01) ==
PROVIDERS: Visit Provider Physician Assistant
DX: S82.65XD Nondisplaced fracture of lateral malleolus of left fibula, subsequent encounter for closed fracture with routine healing (principal)
CPT/HCPCS: 99213

== ENCOUNTER 2024-02-02 07:51 | Outpatient (REF) | payer MEDICARE, SELFPAY ==
--- NOTE | ~2024-02-02 | XR_ITS ---
EXAMINATION: XR ANKLE, LEFT CLINICAL INFORMATION: Pain in nonspecified ankle and joints of foot. COMPARISON: 01/04/2024, 12/03/2023. TECHNIQUE: AP, lateral, and mortise views of the left ankle. FINDINGS: Healing, displaced lateral malleolar fracture with increased bridging callus formation. Alignment maintained. Decreased soft tissue swelling. Ankle joint effusion. Tiny dorsal and plantar calcaneal spurs. XR/XR ankle LT min 3V IMPRESSION: Healing displaced lateral malleolar fracture.
== END 2024-02-02 07:52 | disposition home or self-care (01) ==
LOC: HO.HOSX 07:51
PROVIDERS: Visit Provider Physician Assistant
DX: S82.65XD Nondisplaced fracture of lateral malleolus of left fibula, subsequent encounter for closed fracture with routine healing (principal)
CPT/HCPCS: 73610; 99212

== ENCOUNTER 2024-02-02 11:23 | Outpatient (AMB) | payer MEDICARE, SELFPAY ==
--- NOTE | 2024-02-02 11:43 | MHC.OFFVIS ---
Intake Visit Reasons: ov- Left ankle Fx, DOI 12/03/23 Intake Note: Mckinley is a 78 year old male who presents today for a follow up of his left ankle fx, DOI 12/02/23. Patient states he is doing well no pain or discomfort. Allergies No Known Allergies Allergy (Verified 12/07/23 15:33) HPI HPI ov- Left ankle Fx, DOI 12/03/23: Details: 79-year-old male who presents in the office today for a follow up of a left ankle lateral malleolus fracture, which occurred on 12/03/2023 status post a slip and fall on his steps. I last saw the patient in the office on 01/04/2024 when he was placed in a short walking boot and told he may weight bear as tolerated. PT was deferred due to the patient having good ROM but home exercises were given in the office. [facility] Social History Alcohol intake: current Patient Tobacco Use Status: Never used Tobacco Current occupational status: retired Review of Systems Const All systems reviewed & are unremarkable except as noted in HPI and below Physical Exam Const General: cooperative, healthy appearing and no acute distress Resp Effort & Inspection: normal respiratory effort and able to speak in complete sentences Cardio Rate: regular rate Peripheral pulses: Peripheral pulses 2+ throughout GI Palpation (GI): Soft to palpation Skin Lesions: no lesions Rashes: no rashes Extrem Other: Left ankle: Normal to inspection. No ecchymosis, erythema, or edema. No tenderness to palpation at the distal tibia or fibula. Patient is able to demonstrate dorsiflexion, plantar flexion, pronation and supination. Negative anterior drawer. Sensation intact. Pedal Pulse intact. Assessment & Plan Assessment & Plan (1) Fracture of left ankle, lateral malleolus: Code(s): S82.62XA - Displaced fracture of lateral malleolus of left fibula, initial encounter for closed fracture Category: Medical Qualifiers: Encounter type: subsequent encounter Fracture alignment: nondisplaced Fracture healing: with routine healing Fracture type: closed Qualified Code(s): S82.65XD - Nondisplaced fracture of lateral malleolus of left fibula, subsequent encounter for closed fracture with routine healing Plan Mr. Damico is an 79-year-old male who presents in the office today for a follow up of a left ankle lateral malleolus fracture, which occurred on 12/03/2023 status post a slip and fall on his steps. I last saw the patient in the office on 01/04/2024 when he was placed in a short walking boot and told he may weight bear as tolerated. PT was deferred due to the patient having good ROM but home exercises were given in the office. Patient may discontinue the use of the walking boot at this time and transition into a supportive sneaker. He may return to normal activities as tolerated using pain as his guide. Follow up be PRN, or sooner if needed. X-rays of the left ankle which were obtained while in the office today and were reviewed by me, Monse Harrison PA-C, revealed routine healing of a left lateral malleolus fracture. Orders: Orders XR ankle LT min 3V Today M25.579 - Pain in unspecified ankle and joints of unspecified foot Patient Instructions: Scribed by Leta Quiros medical sales specialist, for Monse Harrison PA-C on 02/02/2024 at 11:27 am, EST. Coding Level of Care Code Est Pt Level 3 (16594) Diagnoses Closed nondisplaced fracture of lateral malleolus of left fibula with routine healing, subsequent encounter S82.65XD Encounter type: subsequent encounter Fracture alignment: nondisplaced Fracture healing: with routine healing Fracture type: closed
== END 2024-02-02 11:51 | disposition home or self-care (01) ==
PROVIDERS: Visit Provider Physician Assistant
DX: S82.65XD Nondisplaced fracture of lateral malleolus of left fibula, subsequent encounter for closed fracture with routine healing (principal)
CPT/HCPCS: 99213